=== PATIENT | female | born 1960 | race Caucasian/White ===

== ENCOUNTER → 2018-02-02 | Outpatient (CLI) | payer BC ==
[~2018-02-02] MED LIST: ASPIRIN 81M81 MG/TA2; CARDI-OMEGA1000 MG PO; CRESTOR 10MG10 MG PO; LEVOXYL0.025 MG; NITROSTAT0.4 MG/TAB SL; PRILOSEC 20MG20 MG PO; SYNTHROID0.05 MG/TA PO
== END ==
LOC: MC.RAD 09:13
DX: Z12.31 Encounter for screening mammogram for malignant neoplasm of breast (principal)

== ENCOUNTER 2018-12-15 08:47 | Day surgery (SDC) | payer BC ==
[~2018-12-15] VITALS: Ht 165.1 cm; Wt 69.9 kg
[2018-12-15 09:53] VITALS: BP 129/72; PULSE 70; TEMP 98.4
[2018-12-15] MEDS ORDERED: PRILOSEC 20MG20 MG PO (11:03)
[2018-12-15 11:20] VITALS: BP 126/60; PULSE 93; TEMP 98.4
--- NOTE | 2018-12-15 11:20 | NUR ---
Pt to GI bay 3 via cart from ENDO. Pt drowsy, but awake. Denies pain or nausea. Pt ambulates to recliner with stand by assistance. Warm blankets given. Pt does not want anything to eat/drink at this time. No visitors here with pt at this time. Will continue to monitor. Call light within reach.
[2018-12-15 11:35] VITALS: BP 115/55; PULSE 76
--- NOTE | 2018-12-15 11:35 | NUR ---
Pt sleeping. Respirations even and unlabored.
[2018-12-15 11:56] VITALS: BP 109/63; PULSE 81
--- NOTE | 2018-12-15 11:56 | NUR ---
Pt continues to sleep. Respirations even and unlabored. Will continue to monitor. Call light within reach.
[2018-12-15 12:11] VITALS: BP 111/63; PULSE 82
--- NOTE | 2018-12-15 12:11 | NUR ---
Pt continues to rest. Water given. Pt takes sips without difficulties. Will continue to monitor. Call light within reach.
[2018-12-15 12:26] VITALS: BP 114/55; PULSE 81
--- NOTE | 2018-12-15 12:26 | NUR ---
Pt continues to rest. Denies needs. Call light within reach.
--- NOTE | 2018-12-15 12:35 | NUR ---
Discharge instructions reviewed. Pt voices understanding. IV site discontinued with all parts intact. Pt up to dress. Call light within reach.
--- NOTE | 2018-12-15 12:45 | NUR ---
Pt escorted to private car via wheel chair. Pt accompanied home by her son.
== END 2018-12-15 12:45 | disposition home or self-care (01) ==
LOC: SDCO 08:47
DX: K22.2 Esophageal obstruction (principal); K29.60 Other gastritis without bleeding; K29.30 Chronic superficial gastritis without bleeding; K29.80 Duodenitis without bleeding; E78.5 Hyperlipidemia, unspecified; Z86.010 Personal history of colon polyps; E03.9 Hypothyroidism, unspecified; Z79.899 Other long term (current) drug therapy
CPT/HCPCS: C1726; J2250; J3010; J7030

== ENCOUNTER → 2019-02-16 | Outpatient (CLI) | payer BC ==
--- NOTE | 2019-02-15 09:20 | NUR ---
LEFT MSG ON THE MAACHINE TO CALL BACK AND LEFT NUMBER. GAVE INSTRUCTIONS.
[~2019-02-16] VITALS: Ht 165.1 cm; Wt 68.7 kg
[2019-02-16 06:27] VITALS: BP 144/72; PULSE 87
[2019-02-16 08:00] VITALS: BP 125/65; PULSE 107
[2019-02-16 08:01] VITALS: BP 133/72; PULSE 110
[2019-02-16 08:02] VITALS: BP 142/73; PULSE 105
[2019-02-16 08:03] VITALS: BP 136/75; PULSE 102
== END ==
LOC: COL.CARD 02-09 05:45
DX: R07.9 Chest pain, unspecified (principal)
CPT/HCPCS: A9500; J2785

== ENCOUNTER 2019-03-10 14:04 | Inpatient (IN) | payer BC ==
[2019-03-10] VITALS (13 sets, daily range): BP systolic 98–142; BP diastolic 46–79; PULSE 74–91; TEMP 97.8–98.5
[~2019-03-10] VITALS: Ht 165.1 cm; Wt 68.1 kg
[2019-03-10] MEDS ORDERED: ALDACTONE 25MG25 M1 PO (14:23)
[2019-03-10] MEDS ORDERED: ALTACE 5MG5 MG PO (14:23)
[2019-03-10 14:27] LABS: BASO # 0.1 (0.0-0.2); EOS % 0.5 % (0-4.0); GRAN # 4.3 (1.4-6.5); GRAN % 58.8 % (42.2-75.2); HEMATOCRIT 42.2 % (37.0-47.0); HEMOGLOBIN 14.2 g/dl (12.5-16.0); LYMPH # 2.3 (1.2-3.4); LYMPH % 31.3 % (20.0-51.0); MEAN CELL VOLUME 94 fl (80.0-100.0); MEAN CORPUSCULAR HEMOGLOBIN 32 pg (27.0-31.0); MEAN CORPUSCULAR HGB CONC 34 g/dl (33.0-37.0); MEAN PLATELET VOLUME 9.2 fl (7.4-10.4); MONO # 0.6 (0.1-0.6); MONO % 8.1 % (1.7-9.3); PLATELET COUNT 250 K/mm3 (130-400); RED BLOOD COUNT 4.49 M/mm3 (4.10-5.30); REDCELL DISTRIBUTION WIDTH-CV 12.3 % (11.5-14.5)
[2019-03-10 14:33] LABS: INR 1.1 (0.8-3.0); PROTHROMBIN TIME 12.4 SECONDS (9.7-12.8)
[2019-03-10 14:36] LABS: PARTIAL THROMBOPLASTIN TIME 33.7 SECONDS (26.0-37.0)
[2019-03-10 14:43] LABS: ALANINE AMINOTRANSFERASE 16 U/L (9-52); ALBUMIN 4.3 gm/dL (3.5-5.0); ALKALINE PHOSPHATASE 79 U/L (50-136); ANION GAP 9 mmol/L (7-16); AST,SGOT 40 U/L (15-37); BILIRUBIN,TOTAL 0.5 mg/dL (0.0-1.0); BLOOD UREA NITROGEN 15 mg/dL (7-17); CALCIUM 9.2 mg/dL (8.4-10.2); CARBON DIOXIDE 28 mmol/L (22-30); CHLORIDE 105 mmol/L (98-107); CREATININE, serum 0.86 (0.52-1.25); GLUCOSE 99 mg/dL (74-106); POTASSIUM 3.9 mmol/L (3.4-5.0); SODIUM 141 mmol/L (137-145); TOTAL PROTEIN 7.8 gm/dL (6.4-8.2)
[2019-03-10 14:58] LABS: TROPONIN-I < 0.012 ng/mL (0.000-0.035)
--- NOTE | 2019-03-10 17:00 | NUR ---
Patient arrived to floor at about 1630 and she is going down for her heart cath now. Consent signed and on chart.
--- NOTE | 2019-03-10 17:45 | NUR ---
SEE SUDARSHAN FOR ALL MEDICATION ADMIN TIMES AND INTRA AND POST SEDATION SCORING ASSESSMENT
--- NOTE | 2019-03-10 18:30 | NUR ---
Patient is back from her cardiac cath. Explained she has to lay flat for 2 hours. Femoral site is soft and supple. No drainage noted to dressing. Family at bedside. Explained she can not have caffiene or eat and drink after midnight for her DEAN procedure. Anesthesia notified of DEAN for tomorrow. No other changes at this time. Discussed heart healthy diet. Call light within reach. Vital signs stable.
--- NOTE | 2019-03-10 19:33 | NUR ---
Resting in bed. Right femoral site without complications. Call light in reach.
--- NOTE | 2019-03-10 19:38 | NUR ---
Resting in bed. Assessment complete. Lungs clear. Heart sounds normal. Bowels active x4. Pulses strong throughout. No edema noted. INT to right hand without complication. Denies pain. Right femoral site without complications. Denies needs at this time. Will remain flat until 2030 as ordered. Call light in reach.
--- NOTE | 2019-03-10 20:38 | NUR ---
Patient assisted to restroom. No complications with right femoral site.
--- NOTE | 2019-03-10 23:47 | NUR ---
Resting in bed. Right femoral site free of complications. Denies pain. Denies needs at this time. Call light in reach.
[2019-03-11] VITALS (13 sets, daily range): BP systolic 102–128; BP diastolic 51–82; PULSE 62–85; TEMP 97.4–98.3
--- NOTE | 2019-03-11 02:25 | NUR ---
Resting in bed asleep. Call light in reach.
--- NOTE | 2019-03-11 03:51 | NUR ---
Resting in bed. Right femoral without complications. Reports 3/10 pain. Provided with PRN tylenol. Denies other needs. Call light in reach.
--- NOTE | 2019-03-11 06:11 | NUR ---
Uneventful night. Resting in bed this AM. Right femoral site free of complications throughout shift. Denies needs at this time. Call light in reach.
--- NOTE | 2019-03-11 06:54 | NUR ---
Report given to GABRIELLA Howard
[2019-03-11 07:25] LABS: CALCIUM 8.8 mg/dL (8.4-10.2); CHOLESTEROL RISK RATIO 5.7; CREATININE, serum 0.81 (0.52-1.25); POTASSIUM 3.6 mmol/L (3.4-5.0)
[2019-03-11 07:51] LABS: TSH w REFLEX 1.21 uIU/mL (0.465-4.680)
--- NOTE | 2019-03-11 09:46 | NUR ---
PATIENT A&OX4. VSS. BOWEL SOUNDS HYPOACTIVE ALL FOUR QUADRANTS. PATIENT DENIES N/V. RIGHT FEMORAL CATH SITE DRESSED WITH ANGIOSEAL AND IS CD&I. HARD AREA PALPATED TO THE LATERAL SIDE OF CATH SITE. SEE MORNING ASSESSMENT. PATIENT STATES THAT SHE HAS SOME RIGHT CHEST TIGHTNESS WITH AMBULATION. PATIENT DENIES SHORTNESS OF BREATH. DEAN CONSENT FORM SIGNED AND ON PATIENT CHART. LR TO GRAVITY FLOW TUBING INFUSING TO RIGHT HAND IV. CALL LIGHT WITHIN REACH. PATIENT DENIES ANY NEEDS AT THIS TIME.
--- NOTE | 2019-03-11 10:30 | NUR ---
PATIENT TAKEN TO [facility] ROOM 16 FOR DEAN VIA WHEELCHAIR BY SURGICAL STAFF. WILL WAIT FOR PATIENT ARRIVAL BACK TO ROOM 343.
--- NOTE | 2019-03-11 10:58 | NUR ---
First visit from the women's activities adviser. No needs right now.
--- NOTE | 2019-03-11 11:45 | NUR ---
PATIENT ARRIVED BACK TO ROOM 343 VIA WHEELCHAIR FROM DEAN. PATIENT IS DROWSY FROM SEDATION. POST-OP VSS. WILL CONTINUE TO MONITOR.
--- NOTE | 2019-03-11 12:30 | NUR ---
PATIENT TOLERATING CLEAR LIQUIDS WITHOUT COMPLAINTS OF N/V. DIET ADVANCED TO HEART HEALTHY FOR LUNCH.
--- NOTE | 2019-03-11 13:06 | NUR ---
SW student attempted to meet with patient. Patient was still groggy from surgery, anesthesia, and pain medications. SW student to follow up later when patient is more alert and oriented.
[2019-03-11] MEDS ORDERED: PRIL40 PO (14:00)
[2019-03-11] MEDS ORDERED: ASPIRIN E.C. 8181 MG PO (14:01)
[2019-03-11] MEDS ORDERED: COREG 3.123.125 MG/T PO (14:03)
[2019-03-11] MEDS ORDERED: ALTACE 10MG TAB10 MG PO (14:04)
[2019-03-11] MEDS ORDERED: MAALOX ADVANCE148 ML PO (14:06)
--- NOTE | 2019-03-11 14:50 | NUR ---
ALEISHA mckeon met with patient to discuss discharge plan. Patient lives in [place] with her son and granddaughter. Patient's PCP is Dr. Gomez and she uses the [facility]. Patient does not use any DME and is independent with ADLs. Patient does not have a completed DPOA-HC but was interested in obtaining a form to look over and think about completing. ALEISHA mckeon provided and explained DPOA-HC form. Patient plans to return home upon discharge. No identified needs at this time.
--- NOTE | 2019-03-11 15:30 | NUR ---
PATIENT POST-OP VITALS COMPLETE. PATIENT TOLERATING DIET WITHOUT N/V. PATIENT DENIES COMPLAINTS OF PAIN AT THIS TIME.
--- NOTE | 2019-03-11 16:33 | NUR ---
PATIENT'S RIGHT HAND INT DC'D PER PENDING DISCHARGE. PATIENT TOLERATED WELL.
--- NOTE | 2019-03-11 17:00 | NUR ---
DISCHARGE INSTRUCITONS REVIEWED WITH PATIENT AND DAUGHTER. ALL QUESTIONS ANSWERED. PATIENT PERSONAL BELONGINGS GATHERED. PATIENT TAKEN TO PERSONAL VEHICLE VIA WHEELCHAIR BY SURGICAL STAFF. PATIENT DISCHARGED.
== END 2019-03-11 17:00 | disposition home or self-care (01) | DRG 287 ==
LOC: COL.ER 14:04 → SURG 15:05
PROVIDERS: Family Medicine; Physician Assistant; ADMIT Hospitalist
PROC: B2111ZZ Fluoroscopy of Multiple Coronary Arteries using Low Osmolar Contrast (ICD-10-PCS; principal; 2019-03-10)
PROC: B2151ZZ Fluoroscopy of Left Heart using Low Osmolar Contrast (ICD-10-PCS; 2019-03-10)
PROC: 4A023N8 Measurement of Cardiac Sampling and Pressure, Bilateral, Percutaneous Approach (ICD-10-PCS; 2019-03-10)
DX: R07.89 Other chest pain (principal); I42.8 Other cardiomyopathies; K21.9 Gastro-esophageal reflux disease without esophagitis; R00.2 Palpitations; E03.9 Hypothyroidism, unspecified; Z88.1 Allergy status to other antibiotic agents; I27.20 Pulmonary hypertension, unspecified
CPT/HCPCS: 99223-AI; 99239; C1760; C1769; C1894; J1644; J2250; J3010; J7120; Q9967

== ENCOUNTER 2019-04-21 11:52 | Outpatient (RCR) | payer SELFPAY ==
[~2019-04-21 11:52] MED LIST changes: +ALDACTONE 25MG25 M1 PO; +ALTACE 10MG TAB10 MG PO; +ALTACE 5MG5 MG PO; +ASPIRIN E.C. 8181 MG PO; +COREG 3.123.125 MG/T PO; +MAALOX ADVANCE148 ML PO; +PRIL40 PO
== END 2019-04-21 11:55 | disposition still patient (30) ==
LOC: COL.CR 11:52
DX: Z02.89 Encounter for other administrative examinations (principal)

== ENCOUNTER 2019-06-11 14:34 | Outpatient (RCR) | payer BC, OTHER | END 2019-06-11 15:07 | disposition home or self-care (01) | LOC: COL.CR 14:34 | DX: Z48.812 Encounter for surgical aftercare following surgery on the circulatory system (principal); I50.9 Heart failure, unspecified ==

== ENCOUNTER 2019-06-15 07:56 | Outpatient (RCR) | payer BC, OTHER ==
[2019-07-21] MEDS ORDERED: COREG 3.123.125 MG/T PO (08:47)
[2019-07-21] MEDS ORDERED: ALTACE 10MG TAB10 MG PO (08:48)
[2019-07-21] MEDS ORDERED: PROTONIX 40MG T40 MG PO (08:50)
[2019-07-21] MEDS ORDERED: ALDACTONE50 MG PO (08:50)
[2019-07-21] MEDS ORDERED: ASPIRIN 81M81 MG/TA2 PO (08:51)
[2019-07-21] MEDS ORDERED: ALAVERT10 M1 PO (08:51)
[2019-07-21] MEDS ORDERED: PROAIR HFA0.09 MG/AC IH (08:54)
[2019-07-21] MEDS ORDERED: OMEGA-3 1000 MG1 CAP PO (08:55)
[2019-07-22] MEDS ORDERED: CEPHALEXIN500 M1 PO (10:35)
[2019-07-22] MEDS ORDERED: COREG 6.256.25 MG/TA PO (10:36)
== END 2019-09-13 | disposition home or self-care (01) ==
LOC: MKS.ESL.PT
DX: M75.82 Other shoulder lesions, left shoulder (principal)

== ENCOUNTER 2019-06-23 15:33 | Outpatient (RCR) | payer SELFPAY ==
[2019-07-21] MEDS ORDERED: COREG 3.123.125 MG/T PO (08:47)
[2019-07-21] MEDS ORDERED: ALTACE 10MG TAB10 MG PO (08:48)
[2019-07-21] MEDS ORDERED: ALDACTONE50 MG PO (08:50)
[2019-07-21] MEDS ORDERED: PROTONIX 40MG T40 MG PO (08:50)
[2019-07-21] MEDS ORDERED: ALAVERT10 M1 PO (08:51)
[2019-07-21] MEDS ORDERED: ASPIRIN 81M81 MG/TA2 PO (08:51)
[2019-07-21] MEDS ORDERED: PROAIR HFA0.09 MG/AC IH (08:54)
[2019-07-21] MEDS ORDERED: OMEGA-3 1000 MG1 CAP PO (08:55)
[2019-07-22] MEDS ORDERED: CEPHALEXIN500 M1 PO (10:35)
[2019-07-22] MEDS ORDERED: COREG 6.256.25 MG/TA PO (10:36)
== END 2019-09-12 | disposition home or self-care (01) ==
LOC: COL.CR
DX: Z02.89 Encounter for other administrative examinations (principal)

== ENCOUNTER 2019-07-21 07:12 | Day surgery (SDC) | payer BC ==
--- NOTE | 2019-07-20 18:23 | NUR ---
I called pt's cell phone, the answering machine identified Blanca Lazaro. I left a detailed message reminding pt of arrival time of 0700 for her defibrillator placement scheduled tomorrow. I also reviewed the pre procedure instructions for pacer/ICD placement including NPO after midnight, okay to take am meds except diuretics and oral diabetes meds, stopping blood thinners as directed and okay to take asa, bring updated med and allergy list with emphasis to notify if she has developed allergy to contrast dye. Also informed pt she will need a ride home and will stay the night after the procedure is completed.
[2019-07-21] VITALS (8 sets, daily range): BP systolic 106–141; BP diastolic 53–86; PULSE 64–80; TEMP 97.6–98.3
[~2019-07-21] VITALS: Ht 166.4 cm; Wt 70.2 kg
[2019-07-21 07:53] LABS: PROTHROMBIN TIME 12.1 SECONDS (9.7-12.8)
[2019-07-21 07:57] LABS: CREATININE, serum 0.84 (0.52-1.25)
[2019-07-21] MEDS ORDERED: COREG 3.123.125 MG/T PO (08:47)
[2019-07-21] MEDS ORDERED: ALTACE 10MG TAB10 MG PO (08:48)
[2019-07-21] MEDS ORDERED: ALDACTONE50 MG PO (08:50)
[2019-07-21] MEDS ORDERED: PROTONIX 40MG T40 MG PO (08:50)
[2019-07-21] MEDS ORDERED: ALAVERT10 M1 PO (08:51)
[2019-07-21] MEDS ORDERED: ASPIRIN 81M81 MG/TA2 PO (08:51)
[2019-07-21] MEDS ORDERED: PROAIR HFA0.09 MG/AC IH (08:54)
[2019-07-21] MEDS ORDERED: OMEGA-3 1000 MG1 CAP PO (08:55)
--- NOTE | 2019-07-21 09:10 | NUR ---
pT TO PROCEDURE,REPORT TO GABRIELLA ORELLANA.
--- NOTE | 2019-07-21 09:17 | NUR ---
SEE MERGE DOCUMENTATION FOR MEDICATION ADMINISTRATION TIMES AND INTRA/POST PROCEDURE SEDATION ASSESSMENTS.
[2019-07-21 09:24] LABS: HEMATOCRIT 38.3 % (37.0-47.0); HEMOGLOBIN 13.2 g/dl (12.5-16.0); MEAN CELL VOLUME 92 fl (80.0-100.0); MEAN CORPUSCULAR HEMOGLOBIN 32 pg (27.0-31.0); MEAN CORPUSCULAR HGB CONC 35 g/dl (33.0-37.0); MEAN PLATELET VOLUME 9.5 fl (7.4-10.4); PLATELET COUNT 246 K/mm3 (130-400); RED BLOOD COUNT 4.17 M/mm3 (4.10-5.30); REDCELL DISTRIBUTION WIDTH-CV 12.1 % (11.5-14.5)
--- NOTE | 2019-07-21 11:40 | NUR ---
Patient recieved from the Copyright Clerk after placement of an AICD to the left subclavian area. Ice pack applied to incisional area. Left arm in a sling on arrival. Patient on room air on arrival with IV fluids infusing TKO, approximately 450 ml's infused. IV left hand flushed and fluids stopped.
--- NOTE | 2019-07-21 17:02 | NUR ---
Sinus rhythm, rate 92. Visiting with company. Pain controlled with 1 Mcdermitt 5/325mg at 14:19. Left elbow supported on a pillow and sling remains in place. Left subclavian dressing continues clean, and original dressing not disturbed.
--- NOTE | 2019-07-21 19:20 | NUR ---
Assessment and notes entered by GABRIELLA Chow reviewed and agreed by this nurse.
--- NOTE | 2019-07-21 20:54 | NUR ---
Resting in bed. Assessment complete. Left chest ICD site CDI. Ice applied. Patient rating pain 7/10. Will provide PRN norco. INT left forearm without complications. Denies other needs. Call light in reach.
--- NOTE | 2019-07-22 02:14 | NUR ---
Resting in bed. Call light in reach.
[2019-07-22 04:51] VITALS: BP 119/64; PULSE 72; TEMP 98.1
--- NOTE | 2019-07-22 05:33 | NUR ---
Rating pain 5/10. Provided with PRN jose david
--- NOTE | 2019-07-22 06:05 | NUR ---
Patient required x2 doses of norco for pain in left shoulder/arm. Ice remained on site throughout night. Otherwise uneventful. Resting in bed this AM. Call light in reach.
--- NOTE | 2019-07-22 07:05 | NUR ---
Report given GABRIELLA Brown
[2019-07-22 08:18] VITALS: BP 127/57; PULSE 66; TEMP 98.3
--- NOTE | 2019-07-22 09:29 | NUR ---
Pt assessment complete. Pt has a student caring for her this am. Pt laying in bed upon entry, family at bedside. Pt has LUE in sling, dressing removed by Dr. Urban. Site CDI, some bruising present. She currently denies any pain. No N/T. Pt denies N/V. Tele leads in place. LFA INT free from complications. No needs at this time. Call light within reach.
--- NOTE | 2019-07-22 10:00 | NUR ---
ALEISHA met with the patient, patient's daughter (Barbie ph#[phone]), and granddaughter to discuss discharge plan. The patient lives in [place] and she states that her son, Jordan, has been staying with her. She reports independence with ADLs and does not have any DME. The patient's PCP is Dr. Dedrick Gomez and she receives her medications at the [facility]. She reports no difficulties obtaining her meds. The patient does not have advanced directives completed, but she was interested in obtaining a form for DPOA-HC. ALEISHA provided. The patient plans to return back home with her son upon discharge. No additional needs at this time.
--- NOTE | 2019-07-22 10:02 | NUR ---
oncoming report given by GABRIELLA Louie
--- NOTE | 2019-07-22 10:06 | NUR ---
Guest seen by device nurse who checked her pacemaker. Nurse explained to patient how the pacemaker worked and explained to her what she should feel. Nurse explained her settings for the pacemaker were adjusted to proper setting. Guest acknowledged she understood. Device nurse instructed this nurse to take off bandages and leave wound DAVID. Wound is dry and intact; steri-strips also in tact. Device nurse explained to patient how to treat steri-strips. Patient was also seen by the laundromat worker who went over her medication list and how to care for wound after discharge. Patient acknowledged she understood. Park Manager concerned about edema at site of wound; instructed guest to keep icing and to do ROM within limitations. Park Manager removed sling and instructed patient she only needed to wear sling at night time. Sil is resting comfortably in bed and visiting with daughter and granddaughter. Call light is within reach.
[2019-07-22] MEDS ORDERED: CEPHALEXIN500 M1 PO (10:35)
[2019-07-22] MEDS ORDERED: COREG 6.256.25 MG/TA PO (10:36)
--- NOTE | 2019-07-22 10:50 | NUR ---
Initial visit; Patient and her family thanked Tour Conductor for looking in on her wishing her healing and offering God's blessings.
--- NOTE | 2019-07-22 12:04 | NUR ---
Discharge instructions and paperwork reviewed with patient. All questions answered at this time. IV to LFA dc'd. Catheter tip intact. Will continue to monitor.
--- NOTE | 2019-07-22 12:18 | NUR ---
Pt wheeled out at this time.
--- NOTE | 2019-07-22 13:32 | NUR ---
Primary nurse was assisted with [id number] patient care by [employer] [employer] [facility] student Lani Beaver and [facility] Yasmeen Aguilar RN-BC.
== END 2019-07-22 12:18 | disposition home or self-care (01) ==
LOC: COL.CAR 07:12 → MEDICAL 11:51 → COL.CAR 07-22 12:18
PROVIDERS: Internal Medicine Cardiovascular Disease
DX: I42.8 Other cardiomyopathies (principal); I50.22 Chronic systolic (congestive) heart failure; I44.7 Left bundle-branch block, unspecified; Q21.1 Atrial septal defect; R01.1 Cardiac murmur, unspecified; Z88.1 Allergy status to other antibiotic agents; Z91.048 Other nonmedicinal substance allergy status; Z79.899 Other long term (current) drug therapy; Z79.82 Long term (current) use of aspirin; Z80.42 Family history of malignant neoplasm of prostate; Z82.49 Family history of ischemic heart disease and other diseases of the circulatory system
CPT/HCPCS: OP; C1769; C1777; C1882; C1894; C1898; C1900; J0690; J2250; J3010; J7030; Q9967

== ENCOUNTER 2020-04-14 14:15 | Outpatient (RCR) | payer BC ==
[~2020-04-14 14:15] MED LIST changes: +ALAVERT10 M1 PO; +ALDACTONE50 MG PO; +ASPIRIN 81M81 MG/TA2 PO; +CEPHALEXIN500 M1 PO; +COREG 6.256.25 MG/TA PO; +OMEGA-3 1000 MG1 CAP PO; +PROAIR HFA0.09 MG/AC IH; +PROTONIX 40MG T40 MG PO
== END 2020-04-27 | disposition home or self-care (01) ==
LOC: MKS.ESL.PT
DX: M75.82 Other shoulder lesions, left shoulder (principal)

== ENCOUNTER → 2020-11-22 | Outpatient (CLI) | payer BC | LOC: MC.RAD 14:45 | DX: Z12.31 Encounter for screening mammogram for malignant neoplasm of breast (principal); Z95.0 Presence of cardiac pacemaker ==

== ENCOUNTER → 2021-02-15 | Outpatient (CLI) | payer OTHER | LOC: COL.RAD 12:48 | DX: M19.012 Primary osteoarthritis, left shoulder (principal); Z95.0 Presence of cardiac pacemaker ==

== ENCOUNTER 2021-11-20 07:48 | Day surgery (SDC) | payer OTHER ==
[~2021-11-20] VITALS: Ht 165.1 cm; Wt 73.0 kg
--- NOTE | 2021-11-20 08:15 | NUR ---
PATIENT AMBULATED INTO ENDO UNIT BY SELF WITH STEADY GAIT. PATIENT IS ALERT AND ORIENTED X 3. CONSENT EXPLAINED. AND PATIENT SIGNED. HISTORY DONE YESTERDAY. NO CHANGES. ASSESSMENT COMPLETED. LUNGS CTA. HEART S1S2 WITH MURMUR. BOWEL SOUNDS HEARD. PULSES FELT. SEE PROCESS INTERVENTION FOR IV START.
[2021-11-20] MEDS ORDERED: HCTZ12.5TAB PO (08:49)
[2021-11-20] MEDS ORDERED: ZYRTEC 10MG10 MG PO (08:49)
[2021-11-20] MEDS ORDERED: SINGULAIR 110 MG/TAB PO (08:50)
[2021-11-20] MEDS ORDERED: SINGULAIR 110 MG/TAB (08:50)
[2021-11-20 09:19] VITALS: BP 139/74; PULSE 73; TEMP 98.6
[2021-11-20 10:10] VITALS: BP 119/67; PULSE 66
--- NOTE | 2021-11-20 10:10 | NUR ---
PATIENT TRANSPORTED PER CART FROM GI SUITE TO BAY 3 ACCOMPANIED BY THEA RN. PT AMBULATED FROM CART TO CHAIR WITH 1 ASSIST SLOW STEADY GAIT. PATIENT TALKS WITH STAFF. MONITORS APPLIED. VSS. NO FAMILY IN ROOM. VERBAL REPORT RECEIVED.
[2021-11-20 10:15] VITALS: BP 117/61; PULSE 67
--- NOTE | 2021-11-20 10:15 | NUR ---
VSS ON ROOM AIR. PATIENT TOLERATES DRINK WITHOUT PROBLEMS. DENIES DISCOMFORT AND NAUSEA. PATIENT GIVEN CRACKER.
[2021-11-20 10:30] VITALS: BP 122/63; PULSE 66; TEMP 97.9
--- NOTE | 2021-11-20 10:30 | NUR ---
VSS ON ROOM AIR. PATIENT HAS SPOKE WITH DR ROBERTSON. PATIENT TEXT SON AND HE IS ON IS WAY TO HOSPITAL. PATEINT TOLERATES CRACKERS.
[2021-11-20 10:45] VITALS: BP 123/60; PULSE 66
--- NOTE | 2021-11-20 10:45 | NUR ---
VSS ON ROOM AIR. PATIENT STATES SON IS IN PARKING LOT. DENIES PROBLEMS. 1050 IV DC'D WITH CATHETER TIP INTACT. PRESSURE AND BANDAGE APPLIED. 1053 DISCHARGE INSTRUCTIONS GIVEN VERBAL AND DISCHARGE PACKET PROVIDED. QUESTIONS ANSWERED AND PATIENT VOICED UNDERSTANDING. PATIENT CHANGES INTO STREET CLOTHES. 1100 PATIENT DISMISSED PER WHEEL CHAIR ACCOMPANIED BY AMB RN TO PRIVATE VECHILE DRIVEN BY SON.
== END 2021-11-20 11:00 | disposition home or self-care (01) ==
LOC: SDCO 07:48
DX: K22.2 Esophageal obstruction (principal); K29.30 Chronic superficial gastritis without bleeding; K29.50 Unspecified chronic gastritis without bleeding; Z79.82 Long term (current) use of aspirin; Z79.899 Other long term (current) drug therapy; Z79.890 Hormone replacement therapy
CPT/HCPCS: C1726; J2704; J3010; J7030

== ENCOUNTER → 2022-04-02 | Outpatient (CLI) | payer MEDICARE ==
[~2022-04-02] MED LIST changes: +HCTZ12.5TAB PO; +SINGULAIR 110 MG/TAB; +SINGULAIR 110 MG/TAB PO; +ZYRTEC 10MG10 MG PO
== END ==
LOC: MC.RAD 09:17
DX: Z12.31 Encounter for screening mammogram for malignant neoplasm of breast (principal)